=== PATIENT | female | born 1950 | race African-American/Black ===

== ENCOUNTER 2017-06-30 07:32 | Day surgery (SDC) | payer OTHER ==
[2017-06-30] MEDS ORDERED: DEXAMETHASONE INJECTION 10 MG in SODIUM CHLORIDE 50 ML IVPB ONE (08:00)
[2017-06-30] MEDS ORDERED: PALONOSETRON HCL 0.25 MG/5 ML VIAL IVPUSH ONE (08:00)
[2017-06-30] MEDS ORDERED: OXALIPLATIN 100 MG, OXALIPLATIN 45 MG in DEXTROSE 5%-WATER - 500 ML IV ONE (08:30)
[2017-06-30] MEDS ORDERED: LEUCOVORIN INJECTION - 676 MG in DEXTROSE 5%-WATER - 250 ML IVPB ONE (08:30)
[2017-06-30] MEDS ORDERED: FLUOROURACIL 2,500 MG/50 ML VIAL IVPUSH ONE (10:30)
[2017-06-30] MEDS ORDERED: FLUOROURACIL 4,050 MG in SODIUM CHLORIDE 11 ML CP ONE (10:40)
[2017-06-30 11:56] LABS: BASO % 0.8 % (0-2.0); HEMATOCRIT 36.1 % (32.4-45.2); HEMOGLOBIN 11.6 GM/dL (10.7-15.3); LYMPH % 48.6 % (8-40); MCH 24.3 pg (25.7-33.7); MCHC 32.1 g/dl (32.0-36.0); MEAN CELL VOLUME 75.5 fl (80-96); MEAN PLT VOLUME 7.5 fl (7.5-11.1); MONO % 5.1 % (3.8-10.2); NEUT % 39.5 % (42.8-82.8); PLATELET COUNT 419 K/MM3 (134-434); RBC 4.78 M/mm3 (3.60-5.2); WHITE BLOOD COUNT 5.2 K/mm3 (4.0-10.0)
[2017-06-30 12:24] LABS: ALBUMIN 3.9 g/dl (3.4-5.0); ALK PHOS 120 U/L (45-117); ANION GAP 8 (8-16); BILIRUBIN,DIRECT < 0.2 mg/dL (0.0-0.2); BILIRUBIN,TOTAL 0.4 mg/dL (0.2-1.0); BLOOD UREA NITROGEN 10 mg/dL (7-18); CALCIUM 8.7 mg/dL (8.5-10.1); CHLORIDE 107 mmol/L (98-107); CO2 27 mmol/L (21-32); CREATININE 0.6 mg/dL (0.55-1.02); GLUCOSE,RANDOM 116 mg/dL (74-106); MAGNESIUM 2.3 mg/dL (1.8-2.4); POTASSIUM 3.9 mmol/L (3.5-5.1); SGOT/AST 13 U/L (15-37); SGPT/ALT 26 U/L (12-78); SODIUM 142 mmol/L (136-145)
[2017-06-30] MEDS ORDERED: SODIUM CHLORIDE 500 ML IV STA (12:31)
[2017-06-30 17:50] VITALS: TEMP 97.9
[2017-06-30 17:54] VITALS: BP 122/72; PULSE 70
== END 2017-06-30 15:45 | disposition home or self-care (01) ==
LOC: JONCCHEMO 07:32 → J7W 13:07 → JONCCHEMO 15:45
PROVIDERS: ATTEND Internal Medicine Hematology & Oncology
PROC: 3E04305 Introduction of Other Antineoplastic into Central Vein, Percutaneous Approach (ICD-10-PCS; principal; 2017-06-30)
PROC: 3E04305 Introduction of Other Antineoplastic into Central Vein, Percutaneous Approach (ICD-10-PCS; 2017-06-30)
PROC: 3E043GC Introduction of Other Therapeutic Substance into Central Vein, Percutaneous Approach (ICD-10-PCS; 2017-06-30)
DX: Z51.11 Encounter for antineoplastic chemotherapy (principal); C18.9 Malignant neoplasm of colon, unspecified; I10 Essential (primary) hypertension; E78.00 Pure hypercholesterolemia, unspecified; D64.9 Anemia, unspecified; Z86.73 Personal history of transient ischemic attack (TIA), and cerebral infarction without residual deficits; Z87.442 Personal history of urinary calculi
CPT/HCPCS: 36415; 80053; 80076; 83735; 85025; 96366; 96367; 96375; 96409; 96413; 96415; 96417; G0498; J1100; J2469; J9263

== ENCOUNTER 2017-07-02 07:31 | Day surgery (SDC) | payer OTHER ==
[2017-07-02] MEDS ORDERED: ONDANSETRON 4 MG/2 ML VIAL IVPUSH ONE (14:15)
[2017-07-02] MEDS ORDERED: PORTA CATH FLUSH 10 ML IVPUSH ONE (16:55)
[2017-07-02 16:56] VITALS: TEMP 98.5
[2017-07-02 16:59] VITALS: BP 112/70; PULSE 112
== END 2017-07-02 14:20 | disposition home or self-care (01) ==
LOC: JONCNONCHE 07:31 → J7W 13:26 → JONCNONCHE 14:20
PROVIDERS: ATTEND Internal Medicine Hematology & Oncology
PROC: 3E033GC Introduction of Other Therapeutic Substance into Peripheral Vein, Percutaneous Approach (ICD-10-PCS; principal; 2017-07-02)
DX: C18.9 Malignant neoplasm of colon, unspecified (principal); I10 Essential (primary) hypertension; D64.9 Anemia, unspecified; E78.00 Pure hypercholesterolemia, unspecified; Z86.73 Personal history of transient ischemic attack (TIA), and cerebral infarction without residual deficits; Z87.442 Personal history of urinary calculi
CPT/HCPCS: 96374; 96375

== ENCOUNTER 2017-07-14 07:53 | Day surgery (SDC) | payer OTHER ==
[2017-07-14] MEDS ORDERED: PALONOSETRON HCL 0.25 MG/5 ML VIAL IVPUSH ONE (08:00)
[2017-07-14] MEDS ORDERED: DEXAMETHASONE INJECTION 10 MG in SODIUM CHLORIDE 100 ML IVPB ONE (08:00)
[2017-07-14] MEDS ORDERED: LEUCOVORIN INJECTION - 676 MG in DEXTROSE 5%-WATER - 250 ML IVPB ONE (08:30)
[2017-07-14] MEDS ORDERED: OXALIPLATIN 100 MG, OXALIPLATIN 45 MG in DEXTROSE 5%-WATER - 500 ML IV ONE (08:30)
[2017-07-14] MEDS ORDERED: FLUOROURACIL 2,500 MG/50 ML VIAL IVPUSH ONE (10:30)
[2017-07-14] MEDS ORDERED: FLUOROURACIL 4,050 MG in SODIUM CHLORIDE 11 ML CP ONE (10:40)
[2017-07-14 11:11] LABS: BASO % 0.2 % (0-2.0); EOS % 12.7 % (0-4.5); HEMATOCRIT 33.5 % (32.4-45.2); HEMOGLOBIN 11.2 GM/dL (10.7-15.3); LYMPH % 48.3 % (8-40); MCH 25.2 pg (25.7-33.7); MCHC 33.3 g/dl (32.0-36.0); MEAN CELL VOLUME 75.6 fl (80-96); MEAN PLT VOLUME 7.1 fl (7.5-11.1); MONO % 6.3 % (3.8-10.2); NEUT % 32.5 % (42.8-82.8); PLATELET COUNT 322 K/MM3 (134-434); RBC 4.44 M/mm3 (3.60-5.2); RDW 17.7 % (11.6-15.6); WHITE BLOOD COUNT 5.7 K/mm3 (4.0-10.0)
[2017-07-14 11:47] LABS: ALBUMIN 3.6 g/dl (3.4-5.0); ANION GAP 9 (8-16); BILIRUBIN,DIRECT < 0.2 mg/dL (0.0-0.2); BILIRUBIN,TOTAL 0.2 mg/dL (0.2-1.0); BLOOD UREA NITROGEN 11 mg/dL (7-18); CALCIUM 8.5 mg/dL (8.5-10.1); CHLORIDE 110 mmol/L (98-107); CO2 23 mmol/L (21-32); CREATININE 0.7 mg/dL (0.55-1.02); GLUCOSE,RANDOM 97 mg/dL (74-106); MAGNESIUM 1.8 mg/dL (1.8-2.4); POTASSIUM 4.3 mmol/L (3.5-5.1); SGOT/AST 16 U/L (15-37); SGPT/ALT 21 U/L (12-78); SODIUM 142 mmol/L (136-145); TOT PROT 6.8 g/dl (6.4-8.2)
[2017-07-14 12:29] LABS: ALK PHOS 105 U/L (45-117)
[2017-07-14 17:48] VITALS: TEMP 98.2
[2017-07-14 17:59] VITALS: BP 109/71; PULSE 81
== END 2017-07-14 15:50 | disposition home or self-care (01) ==
LOC: JONCCHEMO 07:53 → J7W 12:08 → JONCCHEMO 15:50
PROVIDERS: ATTEND Internal Medicine Hematology & Oncology
DX: Z51.11 Encounter for antineoplastic chemotherapy (principal); C18.9 Malignant neoplasm of colon, unspecified
CPT/HCPCS: 36415; 80053; 80076; 83735; 85025; 96366; 96367; 96375; 96409; 96413; 96415; 96417; G0498; J1100; J2469; J9263

== ENCOUNTER 2017-07-16 07:23 | Day surgery (SDC) | payer OTHER ==
[2017-07-16 14:49] VITALS: BP 92/63; PULSE 81; TEMP 98.5
[2017-07-16] MEDS ORDERED: PORTA CATH FLUSH 10 ML IVPUSH ONE (14:49)
== END 2017-07-16 19:34 | disposition home or self-care (01) ==
LOC: JONCCHEMO 07:23 → J7W 14:09 → JONCCHEMO 19:34
PROVIDERS: ATTEND Internal Medicine Hematology & Oncology
PROC: 0JPVXVZ Removal of Infusion Pump from Upper Extremity Subcutaneous Tissue and Fascia, External Approach (ICD-10-PCS; principal; 2017-07-16)
DX: Z53.8 Procedure and treatment not carried out for other reasons (principal)

== ENCOUNTER 2017-07-28 07:34 | Day surgery (SDC) | payer OTHER ==
[2017-07-28 09:43] LABS: BASO % 0.9 % (0-2.0); EOS % 10.1 % (0-4.5); HEMATOCRIT 33.3 % (32.4-45.2); HEMOGLOBIN 11.2 GM/dL (10.7-15.3); LYMPH % 47.5 % (8-40); MCH 25.5 pg (25.7-33.7); MCHC 33.8 g/dl (32.0-36.0); MEAN CELL VOLUME 75.5 fl (80-96); MEAN PLT VOLUME 6.9 fl (7.5-11.1); NEUT % 33.5 % (42.8-82.8); PLATELET COUNT 362 K/MM3 (134-434); RDW 18.5 % (11.6-15.6); WHITE BLOOD COUNT 5.2 K/mm3 (4.0-10.0)
[2017-07-28] MEDS ORDERED: PALONOSETRON HCL 0.25 MG/5 ML VIAL IVPUSH ONE (10:00)
[2017-07-28] MEDS ORDERED: DEXAMETHASONE INJECTION 10 MG in SODIUM CHLORIDE 50 ML IVPB ONE (10:00)
[2017-07-28 10:19] LABS: ALBUMIN 3.7 g/dl (3.4-5.0); BLOOD UREA NITROGEN 11 mg/dL (7-18); CHLORIDE 107 mmol/L (98-107); POTASSIUM 4.3 mmol/L (3.5-5.1); SODIUM 140 mmol/L (136-145)
[2017-07-28] MEDS ORDERED: LEUCOVORIN INJECTION - 676 MG in DEXTROSE 5%-WATER - 250 ML IVPB ONE (10:30)
[2017-07-28] MEDS ORDERED: OXALIPLATIN 145 MG in DEXTROSE 5%-WATER - 500 ML IV ONE (10:30)
[2017-07-28 10:32] LABS: ALK PHOS 116 U/L (45-117); ANION GAP 9 (8-16); BILIRUBIN,DIRECT < 0.2 mg/dL (0.0-0.2); BILIRUBIN,TOTAL 0.5 mg/dL (0.2-1.0); CO2 24 mmol/L (21-32); GLUCOSE,RANDOM 108 mg/dL (74-106); MAGNESIUM 1.7 mg/dL (1.8-2.4); SGOT/AST 17 U/L (15-37); SGPT/ALT 41 U/L (12-78)
[2017-07-28] MEDS ORDERED: MAGNESIUM SULFATE IN WATER 2 GM/50 ML IVPB IVPB ONE (12:15)
[2017-07-28] MEDS ORDERED: FLUOROURACIL 500 MG/10 ML VIAL IVPUSH ONE (12:30)
[2017-07-28] MEDS ORDERED: FLUOROURACIL 4,050 MG in SODIUM CHLORIDE 11 ML CP ONE (12:45)
[2017-07-28 16:41] VITALS: BP 109/75; PULSE 74; TEMP 97.4
== END 2017-07-28 14:50 | disposition home or self-care (01) ==
LOC: JONCCHEMO 07:34 → J7W 11:05 → JONCCHEMO 14:50
PROVIDERS: ATTEND Internal Medicine Hematology & Oncology
DX: Z51.11 Encounter for antineoplastic chemotherapy (principal); C18.9 Malignant neoplasm of colon, unspecified
CPT/HCPCS: 36415; 80048; 80076; 83735; 85025; 96366; 96367; 96375; 96409; 96413; 96415; 96417; G0498; J1100; J2469; J9190; J9263

== ENCOUNTER 2017-08-11 07:35 | Day surgery (SDC) | payer OTHER ==
[2017-08-11 09:50] LABS: BASO % 2.4 % (0-2.0); EOS % 7.1 % (0-4.5); HEMATOCRIT 33.6 % (32.4-45.2); LYMPH % 56.4 % (8-40); MCH 25.4 pg (25.7-33.7); MCHC 32.8 g/dl (32.0-36.0); MEAN CELL VOLUME 77.4 fl (80-96); MEAN PLT VOLUME 7.2 fl (7.5-11.1); MONO % 10.6 % (3.8-10.2); NEUT % 23.5 % (42.8-82.8); PLATELET COUNT 305 K/MM3 (134-434); RBC 4.34 M/mm3 (3.60-5.2); RDW 19.4 % (11.6-15.6); WHITE BLOOD COUNT 3.9 K/mm3 (4.0-10.0)
[2017-08-11] MEDS ORDERED: PALONOSETRON HCL 0.25 MG/5 ML VIAL IVPUSH ONE (10:00)
[2017-08-11] MEDS ORDERED: DEXAMETHASONE INJECTION 10 MG in SODIUM CHLORIDE 50 ML IVPB ONE (10:00)
[2017-08-11 10:17] LABS: ALBUMIN 3.8 g/dl (3.4-5.0); ALK PHOS 113 U/L (45-117); ANION GAP 7 (8-16); BILIRUBIN,TOTAL 0.7 mg/dL (0.2-1.0); BLOOD UREA NITROGEN 8 mg/dL (7-18); CALCIUM 8.7 mg/dL (8.5-10.1); CHLORIDE 110 mmol/L (98-107); CO2 27 mmol/L (21-32); CREATININE 0.7 mg/dL (0.55-1.02); GLUCOSE,RANDOM 105 mg/dL (74-106); POTASSIUM 4.3 mmol/L (3.5-5.1); SGOT/AST 17 U/L (15-37); SGPT/ALT 27 U/L (12-78); SODIUM 144 mmol/L (136-145)
[2017-08-11] MEDS ORDERED: SODIUM CHLORIDE 250 ML IV STA ×2 (10:22→10:43)
[2017-08-11] MEDS ORDERED: OXALIPLATIN 145 MG in DEXTROSE 5%-WATER - 500 ML IV ONE (10:30)
[2017-08-11] MEDS ORDERED: LEUCOVORIN INJECTION - 676 MG in DEXTROSE 5%-WATER - 250 ML IVPB ONE (10:30)
[2017-08-11 10:43] LABS: BILIRUBIN,DIRECT 0.2 mg/dL (0.0-0.2); MAGNESIUM 1.7 mg/dL (1.8-2.4)
[2017-08-11] MEDS ORDERED: MAGNESIUM SULF 50% (8.12 MEQ/2 ML-1 GM VIAL) IVPB ONE (11:17)
[2017-08-11] MEDS ORDERED: FLUOROURACIL 500 MG/10 ML VIAL IVPUSH ONE (12:30)
[2017-08-11] MEDS ORDERED: FLUOROURACIL 4,050 MG in SODIUM CHLORIDE 11 ML CP ONE (12:45)
[2017-08-11] MEDS ORDERED: MAGNESIUM SULF 50% (8.12 MEQ/2 ML-1 GM VIAL) ONE (14:44)
[2017-08-11 17:03] VITALS: TEMP 97.5
[2017-08-11 17:05] VITALS: BP 122/80; PULSE 80
== END 2017-08-11 16:04 | disposition home or self-care (01) ==
LOC: JONCCHEMO 07:35 → J7W 10:36 → JONCCHEMO 16:04
PROVIDERS: ATTEND Internal Medicine Hematology & Oncology
DX: Z51.11 Encounter for antineoplastic chemotherapy (principal); C18.9 Malignant neoplasm of colon, unspecified
CPT/HCPCS: 36415; 80053; 80076; 83735; 85025; 96361; 96375; 96413; 96415; 96417; G0498; J1100; J2469; J9263

== ENCOUNTER 2017-08-13 07:19 | Day surgery (SDC) | payer OTHER ==
[2017-08-13] MEDS ORDERED: SODIUM CHLORIDE 500 ML IV ONE (10:00)
[2017-08-13 19:05] VITALS: TEMP 98.1
[2017-08-13] MEDS ORDERED: PORTA CATH FLUSH 10 ML IVPUSH ONE (19:13)
[2017-08-13 19:14] VITALS: BP 130/81; PULSE 71
== END 2017-08-13 16:20 | disposition home or self-care (01) ==
LOC: JONCNONCHE 07:19 → J7W 14:00 → JONCNONCHE 16:20
PROVIDERS: ATTEND Internal Medicine Hematology & Oncology
PROC: 3E0437Z Introduction of Electrolytic and Water Balance Substance into Central Vein, Percutaneous Approach (ICD-10-PCS; principal; 2017-08-13)
DX: C18.9 Malignant neoplasm of colon, unspecified (principal); Z76.89 Persons encountering health services in other specified circumstances
CPT/HCPCS: 96361

== ENCOUNTER 2017-08-27 07:45 | Day surgery (SDC) | payer OTHER ==
[~2017-08-27 07:45] MED LIST: TBO-FILGRASTIM 480 MCG/0.8 ML DISP.SYRIN SQ ONE
[2017-08-27 18:49] VITALS: BP 110/79; PULSE 76; TEMP 99
== END 2017-08-27 18:50 | disposition home or self-care (01) ==
LOC: JONCCHEMO 07:45 → J7W 18:15 → JONCCHEMO 18:50
PROVIDERS: ATTEND Internal Medicine Hematology & Oncology
PROC: 0JPVXVZ Removal of Infusion Pump from Upper Extremity Subcutaneous Tissue and Fascia, External Approach (ICD-10-PCS; principal; 2017-08-27)
DX: Z53.8 Procedure and treatment not carried out for other reasons (principal); C18.9 Malignant neoplasm of colon, unspecified

== ENCOUNTER 2017-09-07 07:39 | Day surgery (SDC) | payer OTHER ==
[2017-09-07] MEDS ORDERED: DEXAMETHASONE INJECTION 10 MG in SODIUM CHLORIDE 50 ML IVPB ONE (08:00)
[2017-09-07] MEDS ORDERED: PALONOSETRON HCL 0.25 MG/5 ML VIAL IVPUSH ONE (08:00)
[2017-09-07] MEDS ORDERED: OXALIPLATIN 100 MG, OXALIPLATIN 40 MG in DEXTROSE 5%-WATER - 500 ML IV ONE ×2 (08:30→13:30)
[2017-09-07] MEDS ORDERED: LEUCOVORIN INJECTION - 668 MG in DEXTROSE 5%-WATER - 250 ML IVPB ONE (08:30)
[2017-09-07] MEDS ORDERED: FLUOROURACIL 2,500 MG/50 ML VIAL IVPUSH ONE (10:30)
[2017-09-07] MEDS ORDERED: FLUOROURACIL 4,000 MG in SODIUM CHLORIDE 12 ML IV ONE (10:45)
[2017-09-07 12:47] LABS: HEMATOCRIT 35.6 % (32.4-45.2); HEMOGLOBIN 11.7 GM/dL (10.7-15.3); LYMPH % 19.2 % (8-40); MCH 25.3 pg (25.7-33.7); MEAN CELL VOLUME 76.7 fl (80-96); MEAN PLT VOLUME 7.4 fl (7.5-11.1); NEUT % 79.8 % (42.8-82.8); PLATELET COUNT 403 K/MM3 (134-434); RBC 4.64 M/mm3 (3.60-5.2); RDW 21.2 % (11.6-15.6); WHITE BLOOD COUNT 4.2 K/mm3 (4.0-10.0)
[2017-09-07] MEDS ORDERED: DEXAMETHASONE SOD PHOSPHATE 20 MG/5 ML VIAL IVPB ONE (12:57)
[2017-09-07 13:02] LABS: ALBUMIN 3.8 g/dl (3.4-5.0); ANION GAP 12 (8-16); BILIRUBIN,DIRECT 0.2 mg/dL (0.0-0.2); BILIRUBIN,TOTAL 0.6 mg/dL (0.2-1.0); BLOOD UREA NITROGEN 11 mg/dL (7-18); CALCIUM 9.4 mg/dL (8.5-10.1); CHLORIDE 108 mmol/L (98-107); CO2 21 mmol/L (21-32); CREATININE 0.8 mg/dL (0.55-1.02); GLUCOSE,RANDOM 192 mg/dL (74-106); MAGNESIUM 1.7 mg/dL (1.8-2.4); POTASSIUM 3.7 mmol/L (3.5-5.1); SGOT/AST 33 U/L (15-37); SGPT/ALT 53 U/L (12-78); SODIUM 141 mmol/L (136-145); TOT PROT 7.4 g/dl (6.4-8.2)
[2017-09-07 13:03] LABS: ALK PHOS 139 U/L (45-117)
[2017-09-07] MEDS ORDERED: DEXAMETHASONE INJECTION 20 MG, DIPHENHYDRAMINE 50 MG, RANITIDINE INJECTION 50 MG in SOD... IVPB ONE (13:30)
[2017-09-07 14:25] LABS: ANISOCYTOSIS 2+; MACROCYTOSIS 0; PLATELET ESTIMATE NORMAL
[2017-09-07] MEDS ORDERED: ACETAMINOPHEN 325 MG TABLET (FP) ONE (14:28)
[2017-09-07 16:48] VITALS: TEMP 98.1
[2017-09-07] MEDS ORDERED: MAGNESIUM OXIDE 400 MG TABLET (FP) PO ONE (18:00)
[2017-09-07 19:06] VITALS: BP 142/88; PULSE 80
== END 2017-09-07 19:07 | disposition home or self-care (01) ==
LOC: JONCCHEMO 07:39 → J7W 13:09 → JONCCHEMO 19:07
PROVIDERS: ATTEND Internal Medicine Hematology & Oncology
PROC: 3E04305 Introduction of Other Antineoplastic into Central Vein, Percutaneous Approach (ICD-10-PCS; principal; 2017-09-07)
PROC: 3E04305 Introduction of Other Antineoplastic into Central Vein, Percutaneous Approach (ICD-10-PCS; 2017-09-07)
PROC: 3E043GC Introduction of Other Therapeutic Substance into Central Vein, Percutaneous Approach (ICD-10-PCS; 2017-09-07)
DX: Z51.11 Encounter for antineoplastic chemotherapy (principal); C18.9 Malignant neoplasm of colon, unspecified; I10 Essential (primary) hypertension; E78.5 Hyperlipidemia, unspecified; Z86.73 Personal history of transient ischemic attack (TIA), and cerebral infarction without residual deficits
CPT/HCPCS: 36415; 80053; 80076; 83735; 85025; 96367; 96368; 96375; 96409; 96413; 96415; 96417; G0498; J1100; J2469; J9263

== ENCOUNTER 2017-09-09 07:33 | Day surgery (SDC) | payer OTHER ==
[~2017-09-09 07:33] MED LIST changes: +DEXAMETHASONE SOD PHOSPHATE 20 MG/5 ML VIAL IVPB ONE; -TBO-FILGRASTIM 480 MCG/0.8 ML DISP.SYRIN SQ ONE
[2017-09-09 17:24] VITALS: BP 112/64; PULSE 78; TEMP 99
== END 2017-09-09 17:24 | disposition home or self-care (01) ==
LOC: JONCCHEMO 07:33
PROVIDERS: ATTEND Internal Medicine Hematology & Oncology
PROC: 0JPVXVZ Removal of Infusion Pump from Upper Extremity Subcutaneous Tissue and Fascia, External Approach (ICD-10-PCS; principal; 2017-09-09)
DX: Z53.8 Procedure and treatment not carried out for other reasons (principal); C18.9 Malignant neoplasm of colon, unspecified

== ENCOUNTER 2017-09-11 07:27 | Day surgery (SDC) | payer OTHER ==
[2017-09-11] MEDS ORDERED: SODIUM CHLORIDE 500 ML IV ONE (09:45)
[2017-09-11] MEDS ORDERED: TBO-FILGRASTIM 300 MCG/0.5 ML DISP.SYRINGE SQ ONE (10:00)
[2017-09-11 11:17] VITALS: TEMP 98.6
[2017-09-11] MEDS ORDERED: PORTA CATH FLUSH 10 ML IVPUSH ONE (11:19)
[2017-09-11 12:18] VITALS: BP 130/86; PULSE 80
== END 2017-09-11 11:40 | disposition home or self-care (01) ==
LOC: JONCCHEMO 07:27 → J7W 09:13 → JONCCHEMO 11:40
PROVIDERS: ATTEND Internal Medicine Hematology & Oncology
PROC: 3E013GC Introduction of Other Therapeutic Substance into Subcutaneous Tissue, Percutaneous Approach (ICD-10-PCS; principal; 2017-09-11)
DX: C18.9 Malignant neoplasm of colon, unspecified (principal); Z76.89 Persons encountering health services in other specified circumstances
CPT/HCPCS: 96361; 96372; J1447

== ENCOUNTER 2017-09-21 07:42 | Day surgery (SDC) | payer OTHER ==
[2017-09-21] MEDS ORDERED: PALONOSETRON HCL 0.25 MG/5 ML VIAL IVPUSH ONE (10:00)
[2017-09-21] MEDS ORDERED: DEXAMETHASONE INJECTION 20 MG, RANITIDINE INJECTION 50 MG, DIPHENHYDRAMINE 50 MG in SOD... IVPB ONE (10:00)
[2017-09-21] MEDS ORDERED: LEUCOVORIN INJECTION - 668 MG in DEXTROSE 5%-WATER - 250 ML IVPB ONE (10:30)
[2017-09-21] MEDS ORDERED: OXALIPLATIN 140 MG in DEXTROSE 5%-WATER - 500 ML IV ONE (10:30)
[2017-09-21 10:48] LABS: BASO % 1.9 % (0-2.0); EOS % 2.4 % (0-4.5); HEMATOCRIT 35.2 % (32.4-45.2); HEMOGLOBIN 11.7 GM/dL (10.7-15.3); MCH 25.7 pg (25.7-33.7); MCHC 33.1 g/dl (32.0-36.0); MEAN CELL VOLUME 77.6 fl (80-96); MEAN PLT VOLUME 6.8 fl (7.5-11.1); MONO % 2.9 % (3.8-10.2); NEUT % 68.8 % (42.8-82.8); PLATELET COUNT 340 K/MM3 (134-434); RBC 4.54 M/mm3 (3.60-5.2); RDW 21.6 % (11.6-15.6); WHITE BLOOD COUNT 4.9 K/mm3 (4.0-10.0)
[2017-09-21 11:21] LABS: ALBUMIN 3.8 g/dl (3.4-5.0); ALK PHOS 139 U/L (45-117); BILIRUBIN,DIRECT < 0.2 mg/dL (0.0-0.2); BILIRUBIN,TOTAL 0.4 mg/dL (0.2-1.0); MAGNESIUM 1.7 mg/dL (1.8-2.4); SGOT/AST 23 U/L (15-37); SGPT/ALT 39 U/L (12-78); TOT PROT 7.4 g/dl (6.4-8.2)
[2017-09-21 11:22] LABS: ALBUMIN 3.8 g/dl (3.4-5.0); ALK PHOS 139 U/L (45-117); ANION GAP 8 (8-16); BILIRUBIN,TOTAL 0.4 mg/dL (0.2-1.0); BLOOD UREA NITROGEN 10 mg/dL (7-18); CALCIUM 9.2 mg/dL (8.5-10.1); CHLORIDE 106 mmol/L (98-107); CO2 26 mmol/L (21-32); CREATININE 0.7 mg/dL (0.55-1.02); GLUCOSE,RANDOM 131 mg/dL (74-106); POTASSIUM 4.2 mmol/L (3.5-5.1); SGOT/AST 22 U/L (15-37); SGPT/ALT 39 U/L (12-78); SODIUM 140 mmol/L (136-145); TOT PROT 7.5 g/dl (6.4-8.2)
[2017-09-21] MEDS ORDERED: FLUOROURACIL 500 MG/10 ML VIAL IVPUSH ONE (12:30)
[2017-09-21] MEDS ORDERED: MAGNESIUM SULF 50% (8.12 MEQ/2 ML-1 GM VIAL) IVPB ONE (12:37)
[2017-09-21] MEDS ORDERED: SODIUM CHLORIDE 500 ML IV ONE (12:45)
[2017-09-21] MEDS ORDERED: FLUOROURACIL 4,000 MG in SODIUM CHLORIDE 12 ML CP ONE (12:45)
[2017-09-21] MEDS ORDERED: MAGNESIUM 1GM/D5W - 1 GM/100 ML IVPB IVPB ONE (13:00)
[2017-09-21 14:33] LABS: ANISOCYTOSIS 1+; MACROCYTOSIS 1+; PLATELET ESTIMATE ADEQUATE
[2017-09-21 18:12] VITALS: TEMP 98.6
[2017-09-21 18:31] VITALS: BP 130/79; PULSE 70
== END 2017-09-21 18:31 | disposition home or self-care (01) ==
LOC: JONCCHEMO 07:42 → J7W 11:36 → JONCCHEMO 18:31
PROVIDERS: ATTEND Internal Medicine Hematology & Oncology
DX: Z51.11 Encounter for antineoplastic chemotherapy (principal); C18.9 Malignant neoplasm of colon, unspecified
CPT/HCPCS: 36415; 80053; 80076; 83735; 85025; 96361; 96367; 96375; 96409; 96413; 96415; 96417; G0498; J1100; J2469; J9190; J9263

== ENCOUNTER 2017-09-23 07:20 | Day surgery (SDC) | payer OTHER ==
[2017-09-23 15:57] VITALS: BP 99/75; PULSE 76; TEMP 99.1
== END 2017-09-23 16:00 | disposition home or self-care (01) ==
LOC: JONCCHEMO 07:20
PROVIDERS: ATTEND Internal Medicine Hematology & Oncology
PROC: 0JPVXVZ Removal of Infusion Pump from Upper Extremity Subcutaneous Tissue and Fascia, External Approach (ICD-10-PCS; principal; 2017-09-23)
DX: Z53.8 Procedure and treatment not carried out for other reasons (principal)

== ENCOUNTER 2017-09-24 10:29 | Day surgery (SDC) | payer OTHER ==
[2017-09-24] MEDS ORDERED: TBO-FILGRASTIM 300 MCG/0.5 ML DISP.SYRINGE SQ ONE (11:30)
[2017-09-24 11:42] VITALS: BP 109/69; PULSE 72; TEMP 98.3
== END 2017-09-24 11:35 | disposition home or self-care (01) ==
LOC: JONCCHEMO 10:29 → J7W 10:46 → JONCCHEMO 11:35
PROVIDERS: ATTEND Internal Medicine Hematology & Oncology
PROC: 3E013GC Introduction of Other Therapeutic Substance into Subcutaneous Tissue, Percutaneous Approach (ICD-10-PCS; principal; 2017-09-24)
DX: Z76.89 Persons encountering health services in other specified circumstances (principal); C18.9 Malignant neoplasm of colon, unspecified
CPT/HCPCS: 96372; J1447

== ENCOUNTER 2017-10-05 07:26 | Day surgery (SDC) | payer OTHER ==
[2017-10-05] MEDS ORDERED: DEXAMETHASONE INJECTION 20 MG, RANITIDINE INJECTION 50 MG, DIPHENHYDRAMINE 50 MG in SOD... IVPB ONE (10:00)
[2017-10-05] MEDS ORDERED: PALONOSETRON HCL 0.25 MG/5 ML VIAL IVPUSH ONE (10:00)
[2017-10-05] MEDS ORDERED: LEUCOVORIN INJECTION - 668 MG in DEXTROSE 5%-WATER - 250 ML IVPB ONE (10:00)
[2017-10-05 10:29] LABS: BASO % 0.6 % (0-2.0); HEMATOCRIT 36.4 % (32.4-45.2); HEMOGLOBIN 12.2 GM/dL (10.7-15.3); LYMPH % 32.5 % (8-40); MCH 26.1 pg (25.7-33.7); MCHC 33.6 g/dl (32.0-36.0); MEAN CELL VOLUME 77.6 fl (80-96); MEAN PLT VOLUME 7.1 fl (7.5-11.1); MONO % 1.1 % (3.8-10.2); NEUT % 65.8 % (42.8-82.8); PLATELET COUNT 355 K/MM3 (134-434); RBC 4.69 M/mm3 (3.60-5.2); RDW 21.6 % (11.6-15.6); WHITE BLOOD COUNT 3.5 K/mm3 (4.0-10.0)
[2017-10-05] MEDS ORDERED: OXALIPLATIN 140 MG in DEXTROSE 5%-WATER - 500 ML IV ONE (10:30)
[2017-10-05 10:55] LABS: ALBUMIN 4.2 g/dl (3.4-5.0); ANION GAP 16 (8-16); BILIRUBIN,DIRECT 0.2 mg/dL (0.0-0.2); BILIRUBIN,TOTAL 0.8 mg/dL (0.2-1.0); BLOOD UREA NITROGEN 5 mg/dL (7-18); CALCIUM 9.4 mg/dL (8.5-10.1); CHLORIDE 106 mmol/L (98-107); CO2 19 mmol/L (21-32); CREATININE 1.2 mg/dL (0.55-1.02); GLUCOSE,RANDOM 217 mg/dL (74-106); MAGNESIUM 1.7 mg/dL (1.8-2.4); POTASSIUM 3.9 mmol/L (3.5-5.1); SGOT/AST 43 U/L (15-37); SGPT/ALT 63 U/L (12-78); SODIUM 141 mmol/L (136-145); TOT PROT 7.9 g/dl (6.4-8.2)
[2017-10-05 10:56] LABS: ALK PHOS 158 U/L (45-117)
[2017-10-05] MEDS ORDERED: MAGNESIUM 1GM/D5W - 1 GM/100 ML IVPB IVPB ONE (12:30)
[2017-10-05] MEDS ORDERED: SODIUM CHLORIDE 500 ML IV ONE (12:30)
[2017-10-05] MEDS ORDERED: FLUOROURACIL 500 MG/10 ML VIAL IVPUSH ONE (12:30)
[2017-10-05] MEDS ORDERED: FLUOROURACIL 4,000 MG in SODIUM CHLORIDE 12 ML CP ONE (12:45)
[2017-10-05 17:05] VITALS: TEMP 97.5
[2017-10-05 19:01] VITALS: BP 123/81; PULSE 98
== END 2017-10-05 19:02 | disposition home or self-care (01) ==
LOC: JONCCHEMO 07:26 → J7W 11:33 → JONCCHEMO 19:02
PROVIDERS: ATTEND Internal Medicine Hematology & Oncology
DX: Z51.11 Encounter for antineoplastic chemotherapy (principal); C18.9 Malignant neoplasm of colon, unspecified
CPT/HCPCS: 36415; 80048; 80076; 83735; 85025; 96361; 96366; 96367; 96375; 96409; 96413; 96415; 96417; G0498; J1100; J2469; J9190; J9263

== ENCOUNTER 2017-10-26 07:46 | Day surgery (SDC) | payer OTHER ==
[2017-10-26] MEDS ORDERED: PALONOSETRON HCL 0.25 MG/5 ML VIAL IVPUSH ONE (08:00)
[2017-10-26] MEDS ORDERED: DEXAMETHASONE INJECTION 20 MG, DIPHENHYDRAMINE 50 MG, RANITIDINE INJECTION 50 MG in SOD... IVPB ONE (08:00)
[2017-10-26] MEDS ORDERED: LEUCOVORIN INJECTION - 668 MG in DEXTROSE 5%-WATER - 250 ML IVPB ONE (08:30)
[2017-10-26] MEDS ORDERED: OXALIPLATIN 100 MG, OXALIPLATIN 40 MG in DEXTROSE 5%-WATER - 500 ML IV ONE (08:30)
[2017-10-26 09:07] LABS: EOS % 0.2 % (0-4.5); HEMATOCRIT 38.6 % (32.4-45.2); HEMOGLOBIN 12.3 GM/dL (10.7-15.3); LYMPH % 47.1 % (8-40); MCH 25.3 pg (25.7-33.7); MEAN CELL VOLUME 79.2 fl (80-96); MEAN PLT VOLUME 7.5 fl (7.5-11.1); MONO % 1.9 % (3.8-10.2); NEUT % 49.8 % (42.8-82.8); PLATELET COUNT 329 K/MM3 (134-434); RBC 4.88 M/mm3 (3.60-5.2); WHITE BLOOD COUNT 4.6 K/mm3 (4.0-10.0)
[2017-10-26 09:35] LABS: ALK PHOS 187 U/L (45-117); ANION GAP 13 MMOL/L (8-16); BILIRUBIN,TOTAL 0.6 mg/dL (0.2-1.0); BLOOD UREA NITROGEN 5 mg/dL (7-18); CALCIUM 9.4 mg/dL (8.5-10.1); CHLORIDE 109 mmol/L (98-107); CO2 19 mmol/L (21-32); CREATININE 0.9 mg/dL (0.55-1.02); GLUCOSE,RANDOM 211 mg/dL (74-106); SGOT/AST 71 U/L (15-37); SGPT/ALT 95 U/L (12-78); SODIUM 141 mmol/L (136-145); TOT PROT 7.5 g/dl (6.4-8.2)
[2017-10-26 09:56] LABS: MAGNESIUM 1.7 mg/dL (1.8-2.4)
[2017-10-26 09:59] LABS: BILIRUBIN,DIRECT 0.2 mg/dL (0.0-0.2); BILIRUBIN,TOTAL 0.6 mg/dL (0.2-1.0); TOT PROT 7.6 g/dl (6.4-8.2)
[2017-10-26] MEDS ORDERED: FLUOROURACIL 2,500 MG/50 ML VIAL IVPUSH ONE (10:30)
[2017-10-26] MEDS ORDERED: FLUOROURACIL 4,000 MG in SODIUM CHLORIDE 12 ML CP ONE (10:45)
[2017-10-26] MEDS ORDERED: SODIUM CHLORIDE 500 ML IV ONE (11:00)
[2017-10-26 11:18] VITALS: TEMP 98.1
[2017-10-26] MEDS ORDERED: MAGNESIUM SULF 50% (8.12 MEQ/2 ML-1 GM VIAL) IVPB ONE (11:30)
[2017-10-26 11:36] LABS: ANISOCYTOSIS 3+; MACROCYTOSIS 0; OVALOCYTE 1+; PLATELET ESTIMATE NORMAL; TEAR DROP CELLS 1+
[2017-10-26] MEDS ORDERED: MAGNESIUM SULF 50% (8.12 MEQ/2 ML-1 GM VIAL) ONE (16:04)
[2017-10-26 18:31] VITALS: BP 136/70; PULSE 80
== END 2017-10-26 18:10 | disposition home or self-care (01) ==
LOC: JONCCHEMO 07:46 → J7W 10:36 → JONCCHEMO 18:10
PROVIDERS: ATTEND Internal Medicine Hematology & Oncology
DX: Z51.11 Encounter for antineoplastic chemotherapy (principal); C18.9 Malignant neoplasm of colon, unspecified
CPT/HCPCS: 36415; 80053; 80076; 83735; 85025; 96361; 96366; 96367; 96375; 96409; 96413; 96415; 96417; G0498; J1100; J2469; J9263

== ENCOUNTER 2017-10-28 07:40 | Day surgery (SDC) | payer OTHER ==
[2017-10-28 17:09] VITALS: BP 132/76; PULSE 82; TEMP 98.4
[2017-10-28] MEDS ORDERED: PORTA CATH FLUSH 10 ML IVPUSH ONE (17:18)
== END 2017-10-28 16:40 | disposition home or self-care (01) ==
LOC: JONCCHEMO 07:40 → J7W 15:28 → JONCCHEMO 16:40
PROVIDERS: ATTEND Internal Medicine Hematology & Oncology
PROC: 0JPVXVZ Removal of Infusion Pump from Upper Extremity Subcutaneous Tissue and Fascia, External Approach (ICD-10-PCS; principal; 2017-10-28)
DX: Z53.8 Procedure and treatment not carried out for other reasons (principal)

== ENCOUNTER 2017-11-02 11:25 | Day surgery (SDC) | payer OTHER ==
[2017-11-02] MEDS ORDERED: TBO-FILGRASTIM 480 MCG/0.8 ML DISP.SYRIN SQ ONE (11:45)
[2017-11-02 16:32] VITALS: BP 138/95; PULSE 94; TEMP 98.4
== END 2017-11-02 11:45 | disposition home or self-care (01) ==
LOC: J7W 11:25 → JONCCHEMO 11:25
PROVIDERS: ATTEND Internal Medicine Hematology & Oncology
PROC: 3E013GC Introduction of Other Therapeutic Substance into Subcutaneous Tissue, Percutaneous Approach (ICD-10-PCS; principal; 2017-11-02)
DX: C18.9 Malignant neoplasm of colon, unspecified (principal); Z76.89 Persons encountering health services in other specified circumstances
CPT/HCPCS: 96372; J1447

== ENCOUNTER 2017-11-11 07:44 | Day surgery (SDC) | payer OTHER ==
[2017-11-11] MEDS ORDERED: DEXAMETHASONE INJECTION 20 MG, DIPHENHYDRAMINE 50 MG, RANITIDINE INJECTION 50 MG in SOD... IVPB ONE (08:00)
[2017-11-11] MEDS ORDERED: PALONOSETRON HCL 0.25 MG/5 ML VIAL IVPUSH ONE (08:00)
[2017-11-11] MEDS ORDERED: OXALIPLATIN 100 MG, OXALIPLATIN 40 MG in DEXTROSE 5%-WATER - 500 ML IV ONE (08:30)
[2017-11-11] MEDS ORDERED: LEUCOVORIN INJECTION - 668 MG in DEXTROSE 5%-WATER - 250 ML IVPB ONE (08:30)
[2017-11-11 09:52] LABS: BASO % 0.2 % (0-2.0); HEMATOCRIT 37.2 % (32.4-45.2); HEMOGLOBIN 12.1 GM/dL (10.7-15.3); LYMPH % 37.6 % (8-40); MCH 25.7 pg (25.7-33.7); MCHC 32.5 g/dl (32.0-36.0); MEAN CELL VOLUME 79.1 fl (80-96); MEAN PLT VOLUME 7.9 fl (7.5-11.1); MONO % 1.8 % (3.8-10.2); NEUT % 60.4 % (42.8-82.8); PLATELET COUNT 275 K/MM3 (134-434); RBC 4.71 M/mm3 (3.60-5.2); WHITE BLOOD COUNT 4.5 K/mm3 (4.0-10.0)
[2017-11-11 10:28] LABS: ALBUMIN 3.6 g/dl (3.4-5.0); BILIRUBIN,DIRECT 0.2 mg/dL (0.0-0.2); BILIRUBIN,TOTAL 0.4 mg/dL (0.2-1); MAGNESIUM 1.7 mg/dL (1.8-2.4); TOT PROT 7.1 g/dl (6.4-8.2)
[2017-11-11 10:29] LABS: ALBUMIN 3.8 g/dl (3.4-5.0); ALK PHOS 153 U/L (45-117); ANION GAP 12 MMOL/L (8-16); BILIRUBIN,TOTAL 0.5 mg/dL (0.2-1); BLOOD UREA NITROGEN 11 mg/dL (7-18); CALCIUM 8.9 mg/dL (8.5-10.1); CHLORIDE 109 mmol/L (98-107); CO2 20 mmol/L (21-32); CREATININE 0.8 mg/dL (0.55-1.3); GLUCOSE,RANDOM 159 mg/dL (74-106); POTASSIUM 4.4 mmol/L (3.5-5.1); SGOT/AST 25 U/L (15-37); SGPT/ALT 33 U/L (13-61); SODIUM 141 mmol/L (136-145); TOT PROT 7.2 g/dl (6.4-8.2)
[2017-11-11] MEDS ORDERED: FLUOROURACIL 2,500 MG/50 ML VIAL IVPUSH ONE (10:30)
[2017-11-11] MEDS ORDERED: FLUOROURACIL 4,000 MG in SODIUM CHLORIDE 12 ML CP ONE (10:45)
[2017-11-11] MEDS ORDERED: MAGNESIUM SULF 50% (8.12 MEQ/2 ML-1 GM VIAL) IVPB ONE (10:57)
[2017-11-11 11:43] LABS: ANISOCYTOSIS 1+
[2017-11-11] MEDS ORDERED: OXALIPLATIN IV ONE (12:15)
[2017-11-11] MEDS ORDERED: DEXTROSE 5% IV ONE (12:15)
[2017-11-11] MEDS ORDERED: WATER IV ONE (12:15)
[2017-11-11] MEDS ORDERED: SODIUM CHLORIDE 500 ML IV ONE (12:30)
[2017-11-11 17:15] VITALS: TEMP 97.5
[2017-11-11 18:43] VITALS: BP 145/76; PULSE 79
== END 2017-11-11 18:44 | disposition home or self-care (01) ==
LOC: JONCCHEMO 07:44 → J7W 11:14 → JONCCHEMO 18:44
PROVIDERS: ATTEND Internal Medicine Hematology & Oncology
DX: Z51.11 Encounter for antineoplastic chemotherapy (principal); C18.9 Malignant neoplasm of colon, unspecified
CPT/HCPCS: 36415; 80053; 80076; 83735; 85025; 96361; 96366; 96367; 96375; 96409; 96413; 96415; 96417; G0498; J1100; J2469; J9263

== ENCOUNTER 2017-11-13 07:39 | Day surgery (SDC) | payer OTHER ==
[2017-11-13] MEDS ORDERED: ONDANSETRON 4 MG/2 ML VIAL IVPB ONE (13:00)
[2017-11-13] MEDS ORDERED: SODIUM CHLORIDE 1,000 ML IV ONE (13:00)
[2017-11-13] MEDS ORDERED: PANTOPRAZOLE SODIUM 40 MG VIAL IVPB ONE (13:07)
[2017-11-13 13:57] LABS: HEMATOCRIT 39.8 % (32.4-45.2); MCH 25.7 pg (25.7-33.7); MCHC 32.7 g/dl (32.0-36.0); MEAN CELL VOLUME 78.7 fl (80-96); MEAN PLT VOLUME 7.6 fl (7.5-11.1); PLATELET COUNT 297 K/MM3 (134-434); RBC 5.06 M/mm3 (3.60-5.2); RDW 20.5 % (11.6-15.6); WHITE BLOOD COUNT 4.6 K/mm3 (4.0-10.0)
[2017-11-13 14:42] LABS: ALBUMIN 3.9 g/dl (3.4-5.0); ALK PHOS 142 U/L (45-117); AMYLASE 78 U/L (25-115); ANION GAP 10 MMOL/L (8-16); BILIRUBIN,TOTAL 0.8 mg/dL (0.2-1); BLOOD UREA NITROGEN 12 mg/dL (7-18); CALCIUM 8.6 mg/dL (8.5-10.1); CHLORIDE 104 mmol/L (98-107); CO2 26 mmol/L (21-32); CREATININE 0.7 mg/dL (0.55-1.3); GLUCOSE,RANDOM 92 mg/dL (74-106); LIPASE 138 U/L (73-393); MAGNESIUM 2.1 mg/dL (1.8-2.4); POTASSIUM 3.2 mmol/L (3.5-5.1); SGOT/AST 34 U/L (15-37); SGPT/ALT 41 U/L (13-61); SODIUM 140 mmol/L (136-145); TOT PROT 7.1 g/dl (6.4-8.2)
[2017-11-13] MEDS ORDERED: POTASSIUM CHLORIDE TABS 20 MEQ TABLET.ER (FP) PO ONE (15:23)
[2017-11-13] MEDS: KCL 10 MEQ IVPB 10 MEQ/100 ML INFUS.BAG IVPB SCH ×2 (16:11→17:25)
[2017-11-13 19:15] VITALS: TEMP 98.5
[2017-11-13 19:19] VITALS: BP 157/79; PULSE 81
[2017-11-13] MEDS ORDERED: PORTA CATH FLUSH 10 ML IVPUSH ONE (19:19)
== END 2017-11-13 19:00 | disposition home or self-care (01) ==
LOC: JONCCHEMO 07:39 → J7W 12:43 → JONCCHEMO 19:00
PROVIDERS: ATTEND Internal Medicine Hematology & Oncology
PROC: 3E0437Z Introduction of Electrolytic and Water Balance Substance into Central Vein, Percutaneous Approach (ICD-10-PCS; principal; 2017-11-13)
PROC: 3E043GC Introduction of Other Therapeutic Substance into Central Vein, Percutaneous Approach (ICD-10-PCS; 2017-11-13)
DX: C18.9 Malignant neoplasm of colon, unspecified (principal)
CPT/HCPCS: 36415; 80053; 82150; 82550; 82553; 83690; 83735; 84484; 85027; 96360; 96361; 96365; 96366; 96374; 96375; J7030

== ENCOUNTER 2017-11-25 07:37 | Day surgery (SDC) | payer OTHER ==
[2017-11-25 10:00] LABS: HEMATOCRIT 36.3 % (32.4-45.2); HEMOGLOBIN 11.7 GM/dL (10.7-15.3); LYMPH % 13.3 % (8-40); MCH 25.5 pg (25.7-33.7); MCHC 32.3 g/dl (32.0-36.0); MEAN CELL VOLUME 79.1 fl (80-96); MEAN PLT VOLUME 6.8 fl (7.5-11.1); MONO % 2.2 % (3.8-10.2); NEUT % 84.5 % (42.8-82.8); PLATELET COUNT 344 K/MM3 (134-434); RBC 4.58 M/mm3 (3.60-5.2); RDW 20.8 % (11.6-15.6); WHITE BLOOD COUNT 7.2 K/mm3 (4.0-10.0)
[2017-11-25] MEDS ORDERED: PALONOSETRON HCL 0.25 MG/5 ML VIAL IVPUSH ONE (10:00)
[2017-11-25] MEDS ORDERED: DEXAMETHASONE INJECTION 20 MG, RANITIDINE INJECTION 50 MG, DIPHENHYDRAMINE 50 MG in SOD... IVPB ONE (10:00)
[2017-11-25 10:23] LABS: ALBUMIN 3.7 g/dl (3.4-5.0); BILIRUBIN,DIRECT 0.2 mg/dL (0.0-0.2); BILIRUBIN,TOTAL 0.5 mg/dL (0.2-1); MAGNESIUM 1.9 mg/dL (1.8-2.4); TOT PROT 6.8 g/dl (6.4-8.2)
[2017-11-25] MEDS ORDERED: DEXTROSE 5% IV ONE (10:30)
[2017-11-25] MEDS ORDERED: WATER IV ONE (10:30)
[2017-11-25] MEDS ORDERED: OXALIPLATIN IV ONE (10:30)
[2017-11-25] MEDS ORDERED: LEUCOVORIN INJECTION - 668 MG in DEXTROSE 5%-WATER - 250 ML IVPB ONE (10:30)
[2017-11-25 10:42] LABS: ALBUMIN 3.5 g/dl (3.4-5.0); ALK PHOS 122 U/L (45-117); ANION GAP 8 MMOL/L (8-16); BILIRUBIN,TOTAL 0.5 mg/dL (0.2-1); BLOOD UREA NITROGEN 11 mg/dL (7-18); CALCIUM 8.6 mg/dL (8.5-10.1); CHLORIDE 114 mmol/L (98-107); CO2 23 mmol/L (21-32); CREATININE 0.7 mg/dL (0.55-1.3); GLUCOSE,RANDOM 160 mg/dL (74-106); SGOT/AST 13 U/L (15-37); SGPT/ALT 22 U/L (13-61); SODIUM 145 mmol/L (136-145); TOT PROT 6.6 g/dl (6.4-8.2)
[2017-11-25] MEDS ORDERED: FLUOROURACIL 500 MG/10 ML VIAL IVPUSH ONE (12:30)
[2017-11-25] MEDS ORDERED: SODIUM CHLORIDE 500 ML IV ONE (12:45)
[2017-11-25] MEDS ORDERED: FLUOROURACIL 4,000 MG in SODIUM CHLORIDE 12 ML CP ONE (12:45)
[2017-11-25 18:43] VITALS: TEMP 98.1
[2017-11-25 19:00] VITALS: BP 132/73; PULSE 74
== END 2017-11-25 19:17 | disposition home or self-care (01) ==
LOC: JONCCHEMO 07:37 → J7W 11:27 → JONCCHEMO 19:17
PROVIDERS: ATTEND Internal Medicine Hematology & Oncology
DX: Z51.11 Encounter for antineoplastic chemotherapy (principal); C18.9 Malignant neoplasm of colon, unspecified
CPT/HCPCS: 36415; 80053; 80076; 83735; 85025; 96361; 96366; 96367; 96375; 96413; 96415; 96417; J1100; J2469; J9263

== ENCOUNTER 2017-11-27 07:45 | Day surgery (SDC) | payer OTHER ==
[2017-11-27] MEDS ORDERED: SODIUM CHLORIDE 1,000 ML IV SCH (17:00)
[2017-11-27 18:27] VITALS: BP 134/71; PULSE 69; TEMP 98.4
[2017-11-27] MEDS ORDERED: PORTA CATH FLUSH 10 ML IVPUSH ONE (18:27)
== END 2017-11-27 19:00 | disposition home or self-care (01) ==
LOC: JONCCHEMO 07:45 → J7W 16:44 → JONCCHEMO 19:00
PROVIDERS: ATTEND Internal Medicine Hematology & Oncology
PROC: 3E0337Z Introduction of Electrolytic and Water Balance Substance into Peripheral Vein, Percutaneous Approach (ICD-10-PCS; principal; 2017-11-27)
DX: C18.9 Malignant neoplasm of colon, unspecified (principal); Z76.89 Persons encountering health services in other specified circumstances
CPT/HCPCS: 96360; 96361; J7030

== ENCOUNTER 2017-11-30 13:49 | Day surgery (SDC) | payer OTHER ==
[2017-11-30] MEDS ORDERED: TBO-FILGRASTIM 480 MCG/0.8 ML DISP.SYRIN SQ ONE (14:45)
[2017-11-30 14:47] VITALS: PULSE 74; TEMP 98
[2017-11-30 14:48] VITALS: BP 118/82
== END 2017-11-30 14:46 | disposition home or self-care (01) ==
LOC: JONCCHEMO 13:49
PROVIDERS: ATTEND Internal Medicine Hematology & Oncology
PROC: 3E013GC Introduction of Other Therapeutic Substance into Subcutaneous Tissue, Percutaneous Approach (ICD-10-PCS; principal; 2017-11-30)
DX: C18.9 Malignant neoplasm of colon, unspecified (principal); Z76.89 Persons encountering health services in other specified circumstances
CPT/HCPCS: 96372; J1447

== ENCOUNTER 2017-12-23 07:19 | Day surgery (SDC) | payer OTHER ==
[2017-12-23] MEDS ORDERED: PALONOSETRON HCL 0.25 MG/5 ML VIAL IVPUSH ONE (08:00)
[2017-12-23] MEDS ORDERED: DEXAMETHASONE INJECTION 20 MG, DIPHENHYDRAMINE 50 MG, RANITIDINE INJECTION 50 MG in SOD... IVPB ONE (08:00)
[2017-12-23] MEDS ORDERED: LEUCOVORIN INJECTION - 668 MG in DEXTROSE 5%-WATER - 250 ML IVPB ONE (08:30)
[2017-12-23] MEDS ORDERED: OXALIPLATIN 100 MG, OXALIPLATIN 40 MG in DEXTROSE 5%-WATER - 500 ML IV ONE (08:30)
[2017-12-23] MEDS ORDERED: FLUOROURACIL 2,500 MG/50 ML VIAL IVPUSH ONE (10:30)
[2017-12-23 10:42] LABS: BASO % 0.6 % (0-2.0); HEMATOCRIT 38.2 % (32.4-45.2); HEMOGLOBIN 12.2 GM/dL (10.7-15.3); LYMPH % 23.1 % (8-40); MCH 25.6 pg (25.7-33.7); MCHC 31.9 g/dl (32.0-36.0); MEAN CELL VOLUME 80.3 fl (80-96); MEAN PLT VOLUME 7.8 fl (7.5-11.1); MONO % 0.7 % (3.8-10.2); NEUT % 75.6 % (42.8-82.8); PLATELET COUNT 406 K/MM3 (134-434); RBC 4.76 M/mm3 (3.60-5.2); RDW 19.6 % (11.6-15.6); WHITE BLOOD COUNT 5.2 K/mm3 (4.0-10.0)
[2017-12-23] MEDS ORDERED: SODIUM CHLORIDE 500 ML IV ONE (10:45)
[2017-12-23] MEDS ORDERED: FLUOROURACIL 4,000 MG in SODIUM CHLORIDE 12 ML CP ONE (10:45)
[2017-12-23 11:29] LABS: ALK PHOS 168 U/L (45-117); ANION GAP 13 MMOL/L (8-16); BILIRUBIN,DIRECT 0.2 mg/dL (0.0-0.2); BILIRUBIN,TOTAL 0.6 mg/dL (0.2-1); BLOOD UREA NITROGEN 9 mg/dL (7-18); CALCIUM 9.1 mg/dL (8.5-10.1); CHLORIDE 108 mmol/L (98-107); CO2 19 mmol/L (21-32); CREATININE 0.8 mg/dL (0.55-1.3); GLUCOSE,RANDOM 186 mg/dL (74-106); MAGNESIUM 1.6 mg/dL (1.8-2.4); SGOT/AST 15 U/L (15-37); SGPT/ALT 21 U/L (13-61); SODIUM 140 mmol/L (136-145); TOT PROT 7.6 g/dl (6.4-8.2)
[2017-12-23] MEDS ORDERED: SODIUM CHLORIDE 250 ML IV STA (11:39)
[2017-12-23] MEDS ORDERED: WATER IV ONE (12:30)
[2017-12-23] MEDS ORDERED: DEXTROSE 5% IV ONE (12:30)
[2017-12-23] MEDS ORDERED: OXALIPLATIN IV ONE (12:30)
[2017-12-23] MEDS ORDERED: MAGNESIUM SULF 50% (8.12 MEQ/2 ML-1 GM VIAL) IVPB ONE (13:45)
[2017-12-23 18:07] VITALS: TEMP 98
[2017-12-23] MEDS ORDERED: PORTA CATH FLUSH 10 ML IVPUSH ONE (18:18)
[2017-12-23 19:37] VITALS: BP 146/87; PULSE 100
== END 2017-12-23 19:42 | disposition home or self-care (01) ==
LOC: JONCCHEMO 07:19 → J7W 11:57 → JONCCHEMO 19:42
PROVIDERS: ATTEND Internal Medicine Hematology & Oncology
DX: Z51.11 Encounter for antineoplastic chemotherapy (principal); C18.9 Malignant neoplasm of colon, unspecified
CPT/HCPCS: 36415; 80053; 80076; 82378; 83735; 85025; 96361; 96366; 96367; 96368; 96375; 96413; 96415; 96417; G0498; J1100; J2469; J9263

== ENCOUNTER 2017-12-25 07:37 | Day surgery (SDC) | payer OTHER ==
[2017-12-25] MEDS ORDERED: SODIUM CHLORIDE 1,000 ML IV ONE (15:15)
[2017-12-25 15:52] VITALS: BP 140/76; PULSE 77; TEMP 98.1
[2017-12-25] MEDS ORDERED: PORTA CATH FLUSH 10 ML IVPUSH ONE (15:52)
== END 2017-12-25 16:45 | disposition home or self-care (01) ==
LOC: JONCCHEMO 07:37 → J7W 13:29 → JONCCHEMO 16:45
PROVIDERS: ATTEND Internal Medicine Hematology & Oncology
PROC: 3E0337Z Introduction of Electrolytic and Water Balance Substance into Peripheral Vein, Percutaneous Approach (ICD-10-PCS; principal; 2017-12-25)
DX: C18.9 Malignant neoplasm of colon, unspecified (principal); Z76.89 Persons encountering health services in other specified circumstances
CPT/HCPCS: 96360; 96361; J7030

== ENCOUNTER 2017-12-28 07:27 | Day surgery (SDC) | payer OTHER ==
[2017-12-28] MEDS ORDERED: TBO-FILGRASTIM 480 MCG/0.8 ML DISP.SYRIN SQ ONE (10:00)
[2017-12-28 13:36] VITALS: BP 137/62; PULSE 98; TEMP 97.9
== END 2017-12-28 11:20 | disposition home or self-care (01) ==
LOC: JONCCHEMO 07:27 → J7W 11:00 → JONCCHEMO 11:20
PROVIDERS: ATTEND Internal Medicine Hematology & Oncology
PROC: 3E013GC Introduction of Other Therapeutic Substance into Subcutaneous Tissue, Percutaneous Approach (ICD-10-PCS; principal; 2017-12-28)
DX: C18.9 Malignant neoplasm of colon, unspecified (principal); Z76.89 Persons encountering health services in other specified circumstances
CPT/HCPCS: 96372; J1447

== ENCOUNTER 2018-03-03 08:34 | Day surgery (SDC) | payer OTHER ==
[2018-03-02 10:41] VITALS: BMI 21.6
[2018-03-03 08:52] LABS: BASO % 1.1 % (0-2.0); EOS % 6.9 % (0-4.5); HEMATOCRIT 37.1 % (32.4-45.2); HEMOGLOBIN 12.2 GM/dL (10.7-15.3); LYMPH % 52.2 % (8-40); MCH 25.9 pg (25.7-33.7); MCHC 32.9 g/dl (32.0-36.0); MEAN CELL VOLUME 78.6 fl (80-96); MEAN PLT VOLUME 7.6 fl (7.5-11.1); MONO % 5.6 % (3.8-10.2); NEUT % 34.2 % (42.8-82.8); PLATELET COUNT 347 K/MM3 (134-434); RBC 4.73 M/mm3 (3.60-5.2); RDW 17.3 % (11.6-15.6); WHITE BLOOD COUNT 5.7 K/mm3 (4.0-10.0)
[2018-03-03 09:13] LABS: INR 1.13 (0.83-1.09); PROTHROMBIN TIME (PATIENT) 13.4 SEC (9.7-13.0)
[2018-03-03 12:31] VITALS: TEMP 98.1
[2018-03-03 12:34] VITALS: BP 115/69; PULSE 77
== END 2018-03-03 12:10 | disposition home or self-care (01) ==
LOC: JRADIR 08:34
PROVIDERS: ATTEND Internal Medicine Hematology & Oncology
PROC: 0BBG3ZX Excision of Left Upper Lung Lobe, Percutaneous Approach, Diagnostic (ICD-10-PCS; principal; 2018-03-03)
DX: D38.1 Neoplasm of uncertain behavior of trachea, bronchus and lung (principal); Z53.8 Procedure and treatment not carried out for other reasons; Z85.038 Personal history of other malignant neoplasm of large intestine
CPT/HCPCS: 32405; 36415; 71250-TC; 85025; 85610

== ENCOUNTER 2018-07-01 07:15 | Day surgery (SDC) | payer OTHER ==
[2018-07-01] MEDS ORDERED: SODIUM CHLORIDE 1,000 ML IV ONE (09:00)
[2018-07-01] MEDS ORDERED: PALONOSETRON HCL 0.25 MG/5 ML VIAL IVPUSH ONE (10:00)
[2018-07-01] MEDS ORDERED: FUROSEMIDE 40 MG/4 ML INJECTABLE VIAL IVPUSH ONE (10:00)
[2018-07-01] MEDS ORDERED: FOSAPREPITANT DIMEGLUMINE 150 MG in SODIUM CHLORIDE 150 ML IVPB ONE (10:00)
[2018-07-01] MEDS ORDERED: DEXAMETHASONE SODIUM PHOSPHATE 10 MG in SODIUM CHLORIDE 50 ML IVPB ONE (10:00)
[2018-07-01] MEDS ORDERED: SODIUM CHLORIDE IVPB ONE ×2 (10:30→12:40)
[2018-07-01] MEDS ORDERED: SODIUM CHLORIDE 500 ML IV SCH (10:30)
[2018-07-01] MEDS ORDERED: PEMETREXED DISODIUM IVPB ONE (10:30)
[2018-07-01] MEDS ORDERED: CISPLATIN IV ONE ×3 (10:40→13:30)
[2018-07-01] MEDS ORDERED: SODIUM CHLORIDE IV ONE ×3 (10:40→13:30)
[2018-07-01 11:22] LABS: BASO % 0.4 % (0-2.0); EOS % 1.5 % (0-4.5); HEMATOCRIT 36.4 % (32.4-45.2); HEMOGLOBIN 11.7 GM/dL (10.7-15.3); LYMPH % 20.7 % (8-40); MCH 24.5 pg (25.7-33.7); MEAN CELL VOLUME 76.4 fl (80-96); MEAN PLT VOLUME 7.7 fl (7.5-11.1); MONO % 2.2 % (3.8-10.2); NEUT % 75.2 % (42.8-82.8); PLATELET COUNT 324 K/MM3 (134-434); RBC 4.77 M/mm3 (3.60-5.2); RDW 18.1 % (11.6-15.6); WHITE BLOOD COUNT 9.9 K/mm3 (4.0-10.0)
[2018-07-01 11:47] LABS: BILIRUBIN,TOTAL 0.5 mg/dL (0.2-1); CALCIUM 8.9 mg/dL (8.5-10.1); CREATININE 0.7 mg/dL (0.55-1.3); MAGNESIUM 2.1 mg/dL (1.8-2.4); POTASSIUM 3.7 mmol/L (3.5-5.1); TOT PROT 7.2 g/dl (6.4-8.2)
[2018-07-01] MEDS ORDERED: DIPHENHYDRAMINE 25 MG in SODIUM CHLORIDE 50 ML IVPB ONE (12:00)
[2018-07-01] MEDS ORDERED: MAGNESIUM SULFATE IVPB ONE (12:40)
[2018-07-01] MEDS ORDERED: POTASSIUM CHLORIDE IVPB ONE (12:40)
[2018-07-01] MEDS ORDERED: DEXAMETHASONE INJECTION 10 MG in SODIUM CHLORIDE 50 ML IVPB ONE (13:30)
[2018-07-01 15:54] VITALS: TEMP 98.3
[2018-07-01] MEDS ORDERED: PORTA CATH FLUSH 10 ML IVPUSH ONE (15:54)
[2018-07-01 18:47] VITALS: BP 118/68; PULSE 78
== END 2018-07-01 18:49 | disposition home or self-care (01) ==
LOC: JONCCHEMO 07:15 → J7W 11:32 → JONCCHEMO 18:49
PROVIDERS: ATTEND Internal Medicine Hematology & Oncology
DX: Z51.11 Encounter for antineoplastic chemotherapy (principal); C18.9 Malignant neoplasm of colon, unspecified
CPT/HCPCS: 36415; 80053; 83735; 85025; 96361; 96367; 96375; 96411; 96413; 96415; 96417; J1100; J1453; J2469; J7030; J9305

== ENCOUNTER 2018-07-02 12:45 | Day surgery (SDC) | payer OTHER ==
[2018-07-02] MEDS ORDERED: POTASSIUM CHLORIDE ORAL LIQUID 20 MEQ/15 ML PO ONE (12:50)
[2018-07-02] MEDS ORDERED: SODIUM CHLORIDE 1,000 ML IV ONE (12:50)
[2018-07-02] MEDS ORDERED: FUROSEMIDE 40 MG/4 ML INJECTABLE VIAL IVPB ONE (12:50)
[2018-07-02] MEDS ORDERED: SODIUM CHLORIDE 750 ML IV ONE (14:44)
[2018-07-02] MEDS ORDERED: PEGFILGRASTIM 6 MG/0.6 ML DISP.SYRIN SQ ONE (14:45)
[2018-07-02] MEDS ORDERED: PORTA CATH FLUSH 10 ML IVPUSH ONE (15:48)
[2018-07-02 15:49] VITALS: BP 139/71; PULSE 83; TEMP 98.4
== END 2018-07-02 15:45 | disposition home or self-care (01) ==
LOC: JONCNONCHE 12:45 → J7W 12:47 → JONCNONCHE 15:45
PROVIDERS: ATTEND Internal Medicine Hematology & Oncology
PROC: 3E0437Z Introduction of Electrolytic and Water Balance Substance into Central Vein, Percutaneous Approach (ICD-10-PCS; principal; 2018-07-02)
PROC: 3E033GC Introduction of Other Therapeutic Substance into Peripheral Vein, Percutaneous Approach (ICD-10-PCS; 2018-07-02)
PROC: 3E013GC Introduction of Other Therapeutic Substance into Subcutaneous Tissue, Percutaneous Approach (ICD-10-PCS; 2018-07-02)
DX: C34.90 Malignant neoplasm of unspecified part of unspecified bronchus or lung (principal); Z76.89 Persons encountering health services in other specified circumstances; D50.9 Iron deficiency anemia, unspecified; I10 Essential (primary) hypertension; E78.00 Pure hypercholesterolemia, unspecified; Z86.73 Personal history of transient ischemic attack (TIA), and cerebral infarction without residual deficits
CPT/HCPCS: 96360; 96361; 96372; J2505; J7030

== ENCOUNTER 2018-07-09 12:49 | Day surgery (SDC) | payer OTHER | END 2018-07-09 17:20 | disposition home or self-care (01) | LOC: JONCCHEMO 12:49 → J7W 13:34 → JONCCHEMO 17:20 ==

== ENCOUNTER 2018-07-22 07:14 | Day surgery (SDC) | payer OTHER ==
[2018-07-22] MEDS ORDERED: SODIUM CHLORIDE 1,000 ML IV ONE (08:00)
[2018-07-22] MEDS ORDERED: PALONOSETRON HCL 0.25 MG/5 ML VIAL IVPUSH ONE (10:00)
[2018-07-22] MEDS ORDERED: DEXAMETHASONE SODIUM PHOSPHATE 10 MG in SODIUM CHLORIDE 50 ML IVPB ONE (10:00)
[2018-07-22] MEDS ORDERED: FOSAPREPITANT DIMEGLUMINE 150 MG in SODIUM CHLORIDE 150 ML IVPB ONE (10:00)
[2018-07-22] MEDS ORDERED: PEMETREXED DISODIUM IVPB ONE ×2 (10:30→16:00)
[2018-07-22] MEDS ORDERED: SODIUM CHLORIDE IVPB ONE ×3 (10:30→16:00)
[2018-07-22 10:56] LABS: BASO % 1.4 % (0-2.0); EOS % 6.7 % (0-4.5); HEMATOCRIT 34.2 % (32.4-45.2); HEMOGLOBIN 11.3 GM/dL (10.7-15.3); LYMPH % 43.3 % (8-40); MCHC 32.9 g/dl (32.0-36.0); MEAN CELL VOLUME 76.2 fl (80-96); MEAN PLT VOLUME 7.3 fl (7.5-11.1); MONO % 5.8 % (3.8-10.2); NEUT % 42.8 % (42.8-82.8); PLATELET COUNT 671 K/MM3 (134-434); RDW 18.1 % (11.6-15.6); WHITE BLOOD COUNT 6.6 K/mm3 (4.0-10.0)
[2018-07-22 11:43] LABS: BILIRUBIN,TOTAL 0.6 mg/dL (0.2-1); CALCIUM 9.5 mg/dL (8.5-10.1); CREATININE 1.1 mg/dL (0.55-1.3); MAGNESIUM 2.1 mg/dL (1.8-2.4); POTASSIUM 4.5 mmol/L (3.5-5.1); TOT PROT 7.2 g/dl (6.4-8.2)
[2018-07-22] MEDS ORDERED: DEXAMETHASONE SODIUM PHOSPHATE 20 MG, DIPHENHYDRAMINE 25 MG in SODIUM CHLORIDE 100 ML IVPB ONE (14:30)
[2018-07-22] MEDS: CYANOCOBALAMIN (VITAMIN B-12) 1000 MCG/1 ML VIAL IM ONE ×2 (14:51→16:05)
[2018-07-22] MEDS ORDERED: ACETAMINOPHEN 325 MG TABLET (FP) PO ONE (15:00)
[2018-07-22] MEDS ORDERED: CARBOPLATIN IVPB ONE (15:00)
[2018-07-22] MEDS ORDERED: PORTA CATH FLUSH 10 ML IVPUSH ONE (17:24)
[2018-07-22 18:18] VITALS: BP 138/80; PULSE 78; TEMP 98
== END 2018-07-22 17:20 | disposition home or self-care (01) ==
LOC: JONCCHEMO 07:14 → J7W 11:07 → JONCCHEMO 17:20
PROVIDERS: ATTEND Internal Medicine Hematology & Oncology
DX: Z51.11 Encounter for antineoplastic chemotherapy (principal); C34.90 Malignant neoplasm of unspecified part of unspecified bronchus or lung
CPT/HCPCS: 36415; 80053; 82378; 83735; 85025; 96361; 96367; 96375; 96413; 96417; J1453; J2469; J7030; J9305

== ENCOUNTER 2018-07-23 07:13 | Day surgery (SDC) | payer OTHER ==
[2018-07-23] MEDS ORDERED: PEGFILGRASTIM 6 MG/0.6 ML DISP.SYRIN SQ ONE (10:00)
[2018-07-23] MEDS ORDERED: SODIUM CHLORIDE 500 ML IV ONE (14:15)
[2018-07-23 17:46] VITALS: BP 154/98; PULSE 87; TEMP 98.5
== END 2018-07-23 16:35 | disposition home or self-care (01) ==
LOC: JONCCHEMO 07:13 → J7W 13:58 → JONCCHEMO 16:35
PROVIDERS: ATTEND Internal Medicine Hematology & Oncology
PROC: 3E043GC Introduction of Other Therapeutic Substance into Central Vein, Percutaneous Approach (ICD-10-PCS; principal; 2018-07-23)
DX: C34.90 Malignant neoplasm of unspecified part of unspecified bronchus or lung (principal); Z76.89 Persons encountering health services in other specified circumstances
CPT/HCPCS: 96361; 96365; 96366; 96372; J2505

== ENCOUNTER 2018-08-12 07:15 | Day surgery (SDC) | payer OTHER ==
[2018-08-12] MEDS ORDERED: SODIUM CHLORIDE 1,000 ML IV ONE (09:00)
[2018-08-12 10:28] LABS: BASO % 1.4 % (0-2.0); HEMATOCRIT 32.7 % (32.4-45.2); HEMOGLOBIN 10.8 GM/dL (10.7-15.3); LYMPH % 27.5 % (8-40); MCH 25.3 pg (25.7-33.7); MCHC 33.1 g/dl (32.0-36.0); MEAN CELL VOLUME 76.4 fl (80-96); MONO % 8.4 % (3.8-10.2); NEUT % 60.7 % (42.8-82.8); PLATELET COUNT 771 K/MM3 (134-434); RBC 4.27 M/mm3 (3.60-5.2); RDW 19.2 % (11.6-15.6); WHITE BLOOD COUNT 7.2 K/mm3 (4.0-10.0)
[2018-08-12] MEDS ORDERED: DEXAMETHASONE SODIUM PHOSPHATE 20 MG in SODIUM CHLORIDE 50 ML IVPB ONE (10:30)
[2018-08-12] MEDS ORDERED: FOSAPREPITANT DIMEGLUMINE 150 MG in SODIUM CHLORIDE 145 ML IVPB ONE (10:30)
[2018-08-12] MEDS ORDERED: PALONOSETRON HCL 0.25 MG/5 ML VIAL IVPUSH ONE (10:30)
[2018-08-12 10:56] LABS: ALBUMIN 3.7 g/dl (3.4-5.0); BILIRUBIN,DIRECT 0.1 mg/dL (0.0-0.2); BILIRUBIN,TOTAL 0.3 mg/dL (0.2-1); BLOOD UREA NITROGEN 7.6 mg/dL (7-18); CALCIUM 9.3 mg/dL (8.5-10.1); CREATININE 0.9 mg/dL (0.55-1.3); POTASSIUM 4.3 mmol/L (3.5-5.1); TOT PROT 7.1 g/dl (6.4-8.2)
[2018-08-12] MEDS ORDERED: CARBOPLATIN IVPB ONE ×2 (11:00→14:00)
[2018-08-12] MEDS ORDERED: SODIUM CHLORIDE IVPB ONE ×3 (11:00→14:00)
[2018-08-12] MEDS ORDERED: PEMETREXED DISODIUM IVPB ONE (11:30)
[2018-08-12] MEDS ORDERED: ACETAMINOPHEN 325 MG TABLET (FP) PO ONE (14:00)
[2018-08-12] MEDS ORDERED: CYANOCOBALAMIN (VITAMIN B-12) 1000 MCG/1 ML VIAL IM ONE (15:27)
[2018-08-12 16:10] VITALS: TEMP 97.8
[2018-08-12] MEDS ORDERED: PORTA CATH FLUSH 10 ML IVPUSH ONE (16:10)
[2018-08-12 16:12] VITALS: BP 122/68; PULSE 89
== END 2018-08-12 16:05 | disposition home or self-care (01) ==
LOC: JONCCHEMO 07:15 → J7W 10:34 → JONCCHEMO 16:05
PROVIDERS: ATTEND Internal Medicine Hematology & Oncology
DX: Z51.11 Encounter for antineoplastic chemotherapy (principal); C34.90 Malignant neoplasm of unspecified part of unspecified bronchus or lung
CPT/HCPCS: 36415; 80053; 80076; 83735; 85025; 96361; 96367; 96372; 96375; 96411; 96413; 96417; J1453; J2469; J7030; J9305

== ENCOUNTER 2018-08-13 06:46 | Day surgery (SDC) | payer OTHER ==
[2018-08-13] MEDS ORDERED: PEGFILGRASTIM 6 MG/0.6 ML DISP.SYRIN SQ ONE (09:00)
[2018-08-13 16:24] VITALS: BP 133/69; PULSE 104; TEMP 97.7
== END 2018-08-13 14:15 | disposition home or self-care (01) ==
LOC: JONCCHEMO 06:46 → J7W 14:04 → JONCCHEMO 14:15
PROVIDERS: ATTEND Internal Medicine Hematology & Oncology
PROC: 3E013GC Introduction of Other Therapeutic Substance into Subcutaneous Tissue, Percutaneous Approach (ICD-10-PCS; principal; 2018-08-13)
DX: C34.90 Malignant neoplasm of unspecified part of unspecified bronchus or lung (principal); Z76.89 Persons encountering health services in other specified circumstances
CPT/HCPCS: 96372; J2505

== ENCOUNTER 2018-09-02 06:28 | Day surgery (SDC) | payer OTHER ==
[2018-09-02] MEDS ORDERED: SODIUM CHLORIDE 1,000 ML IV ONE (08:00)
[2018-09-02 09:35] LABS: BASO % 2.2 % (0-2.0); EOS % 3.9 % (0-4.5); HEMATOCRIT 29.6 % (32.4-45.2); LYMPH % 39.4 % (8-40); MCH 25.9 pg (25.7-33.7); MCHC 33.7 g/dl (32.0-36.0); MEAN CELL VOLUME 76.8 fl (80-96); MEAN PLT VOLUME 6.6 fl (7.5-11.1); NEUT % 45.5 % (42.8-82.8); PLATELET COUNT 719 K/MM3 (134-434); RBC 3.86 M/mm3 (3.60-5.2); RDW 21.1 % (11.6-15.6); WHITE BLOOD COUNT 5.2 K/mm3 (4.0-10.0)
[2018-09-02] MEDS ORDERED: FOSAPREPITANT DIMEGLUMINE 150 MG in SODIUM CHLORIDE 150 ML IVPB ONE (10:00)
[2018-09-02] MEDS ORDERED: DEXAMETHASONE SODIUM PHOSPHATE 20 MG in SODIUM CHLORIDE 50 ML IVPB ONE (10:00)
[2018-09-02] MEDS ORDERED: PALONOSETRON HCL 0.25 MG/5 ML VIAL IVPUSH ONE (10:00)
[2018-09-02 10:15] LABS: ALBUMIN 3.9 g/dl (3.4-5.0); BILIRUBIN,DIRECT 0.1 mg/dL (0.0-0.2); BILIRUBIN,TOTAL 0.3 mg/dL (0.2-1); BLOOD UREA NITROGEN 9.7 mg/dL (7-18); CALCIUM 9.1 mg/dL (8.5-10.1); CREATININE 0.9 mg/dL (0.55-1.3); MAGNESIUM 1.8 mg/dL (1.8-2.4); TOT PROT 7.3 g/dl (6.4-8.2)
[2018-09-02 10:23] LABS: ANISOCYTOSIS 2+; MACROCYTOSIS 0; PLATELET ESTIMATE INCREASED
[2018-09-02] MEDS ORDERED: SODIUM CHLORIDE IVPB ONE ×2 (10:30→11:30)
[2018-09-02] MEDS ORDERED: CARBOPLATIN IVPB ONE (10:30)
[2018-09-02] MEDS ORDERED: PEMETREXED DISODIUM IVPB ONE (11:30)
[2018-09-02] MEDS ORDERED: CYANOCOBALAMIN (VITAMIN B-12) 1000 MCG/1 ML VIAL IM ONE (11:30)
[2018-09-02 17:16] VITALS: TEMP 97.9
[2018-09-02 17:30] VITALS: BP 125/67; PULSE 79
[2018-09-02] MEDS ORDERED: PORTA CATH FLUSH 10 ML IVPUSH ONE (17:30)
== END 2018-09-02 16:30 | disposition home or self-care (01) ==
LOC: JONCCHEMO 06:28 → J7W 11:16 → JONCCHEMO 16:30
PROVIDERS: ATTEND Internal Medicine Hematology & Oncology
DX: Z51.11 Encounter for antineoplastic chemotherapy (principal); C34.90 Malignant neoplasm of unspecified part of unspecified bronchus or lung
CPT/HCPCS: 36415; 80048; 80076; 83735; 85025; 96361; 96367; 96372; 96375; 96411; 96413; 96417; J1453; J2469; J7030; J9305

== ENCOUNTER 2018-09-03 06:29 | Day surgery (SDC) | payer OTHER ==
[2018-09-03] MEDS ORDERED: PEGFILGRASTIM 6 MG/0.6 ML DISP.SYRIN SQ ONE (10:00)
[2018-09-03 18:39] VITALS: BP 98/60; PULSE 75; TEMP 97.8
== END 2018-09-03 14:30 | disposition home or self-care (01) ==
LOC: JONCCHEMO 06:29
PROVIDERS: ATTEND Internal Medicine Hematology & Oncology
PROC: 3E013GC Introduction of Other Therapeutic Substance into Subcutaneous Tissue, Percutaneous Approach (ICD-10-PCS; principal; 2018-09-03)
DX: C34.90 Malignant neoplasm of unspecified part of unspecified bronchus or lung (principal); Z76.89 Persons encountering health services in other specified circumstances
CPT/HCPCS: 96372; J2505

== ENCOUNTER 2021-10-28 05:33 | Day surgery (SDC) | payer OTHER ==
[2021-10-25 16:28] VITALS: BMI 32.5
[2021-10-28 11:34] VITALS: TEMP 98
[2021-10-28 12:26] VITALS: BP 132/63; PULSE 64; RESP 19
== END 2021-10-28 12:30 | disposition home or self-care (01) ==
LOC: JASU-ENDO 05:33
PROVIDERS: ATTEND Internal Medicine Gastroenterology
PROC: 0DBL8ZX Excision of Transverse Colon, Via Natural or Artificial Opening Endoscopic, Diagnostic (ICD-10-PCS; principal; 2021-10-28 10:00)
DX: Z12.11 Encounter for screening for malignant neoplasm of colon (principal); D12.3 Benign neoplasm of transverse colon; Z86.010 Personal history of colon polyps
CPT/HCPCS: 88305-TC